=== PATIENT | male | born 2000 | race Hispanic/Latino ===

== ENCOUNTER 2022-09-07 22:56 | Emergency (ER) | payer SELFPAY ==
[2022-09-08] MEDS ORDERED: Ketorolac Tromethamine 30 MG/ML VIAL ONE (01:25)
== END 2022-09-08 02:14 | disposition home or self-care (01) ==
LOC: ERS 22:56 → EDBD 22:56 → ERS 09-08 02:14
DX: R07.89 Other chest pain (principal)
CPT/HCPCS: 36415; 71045; 84484; 93005; 96372; J1885